=== PATIENT | male | born 1945 | race Caucasian/White ===

== ENCOUNTER 2020-10-11 16:41 | Emergency (ER) | payer MEDICARE ==
[~2020-10-11] VITALS: Ht 167.6 cm; Wt 76.4 kg
[2020-10-11] MEDS ORDERED: dexamethasone sod phosphate 10mg/ml inj PO STA (17:44)
== END 2020-10-11 19:35 | disposition home or self-care (01) ==
LOC: ER 16:42
DX: J02.9 Acute pharyngitis, unspecified (principal); J44.9 Chronic obstructive pulmonary disease, unspecified
CPT/HCPCS: 99283; J1100